=== PATIENT | male | born 1945 | race Caucasian/White ===

== ENCOUNTER 2020-07-17 20:15 | Emergency (ER) | payer MEDICARE, OTHER, SELFPAY ==
[2020-07-17 20:27] VITALS: BP 160/84; PULSE 103; RESP 16; TEMP 37.1; O2SAT 96; BMI 33.0
--- NOTE | 2020-07-17 20:41 | ED_ITS ---
HPI - Neck Pain/Injury General: Chief Complaint: Neck Pain/Injury Stated Complaint: SHARP PAINS IN NECK Time Seen by Provider: 07/17/20 20:23 Source: patient Mode of arrival: ambulatory Limitations: no limitations History of Present Illness: HPI Narrative: 74-year-old male who states that he was sleeping in his recliner 2 days ago his head was tilted in a weird way. He states that since then he has had left-sided neck pain that is worsened. He states it is over his trapezius muscle and is very tender to touch tries to move his head to the left. He denies any midline pain. Denies any headache. Denies any chest pain. States pain is currently a 7 out of 10 MD complaint: neck pain Onset (ago): hour(s) Place: home Associated symptoms: Denies headache(s) or nausea Review of Systems 2 Const: Denies: fever(s), chills, body aches or change in appetite Eyes: Denies: blurry vision or eye discomfort ENMT: Denies: throat pain or dental pain Card: Denies: chest pain Resp: Denies: dyspnea GI: Denies: abdominal pain, nausea, vomiting or diarrhea : Denies: dysuria Musc: Reports: neck pain; Denies: back pain Skin/Breast: Denies: rash Neuro: Denies: headache(s) Psych: Denies: depression Martin/Lymph: Denies: easy bruising All/Imm: Denies: urticaria Physical Exam Const: COMMON NORMALS: no acute distress, patient oriented x3 and healthy appearing HENMT: COMMON NORMALS: normocephalic and atraumatic HEAD & SCALP: normocephalic and atraumatic Eye: COMMON NORMALS: Equal, round and reactive pupils present and EOMs intact bilaterally PUPIL: Yes Equal, round and reactive pupils present Neck/C-Spine: OTHER: tenderness over left trapezius, no midline tenderness pain when he turns head to left Chest: COMMONS NORMALS: normal inspection of the chest and normal palpation of entire chest wall Resp: COMMON NORMALS: normal respiratory effort, No retractions, No use of accessory muscles and clear to auscultation bilaterally AUSCULTATION: clear to auscultation bilaterally Cardio: COMMON NORMALS: regular rate, regular rhythm and No murmurs present (Cardio) RATE: regular rate RHYTHM: regular rhythm GI: COMMON NORMALS: Normal to inspection, nondistended, normoactive bowel sounds present, Soft to palpation, non-tender and no masses PALPATION: Yes Soft to palpation Extremity: COMMON NORMALS: normal to inspection and full ROM Neuro: COMMON NORMALS: patient oriented x3, moves all extremities and no focal motor deficits Psych: COMMON NORMALS: mental status grossly normal, Normal thought process present and cooperative THOUGHT PROCESS: Normal thought process present Skin: COMMON NORMALS: no rashes or lesions noted and no wounds GENERAL SKIN EXAM: no rashes or lesions noted Course Vital Signs: Vital signs: Vital Signs Temperature 98.8 F 07/17/20 20:27 Pulse Rate 103 H 07/17/20 20:27 Respiratory Rate 16 07/17/20 20:27 Blood Pressure 160/84 07/17/20 20:27 Pulse Oximetry 96 07/17/20 20:27 MDM - Neck Pain/Injury MDM Narrative: Medical decision making narrative: Giorgio presents here with neck pain is likely muscle spasm. He has no midline pain. We will place him on anti-inflammatory and a muscle relaxant. He is to ice 10 minutes every 1-2 hours. He is stable for discharge and is to follow-up with PCP in 2 to 4 days and return if worsening. He understands agrees to plan. Discharge Plan Discharge Patient Disposition: Home Clinical Impression: Strain of neck muscle Qualifiers: Encounter type: initial encounter Qualified Code(s): S16.1XXA - Strain of muscle, fascia and tendon at neck level, initial encounter Condition: Stable Prescriptions: New Robaxin-750 750 mg tablet 750 mg PO Q6H Qty: 30 RF: 0 Naprosyn 500 mg tablet 500 mg PO BID PRN (Reason: pain) Qty: 20 RF: 0 Discharge Orders: Discharge ED (Routine); Ordered 07/17/20 Ordered By: Harry Webber Referrals: Praveen Rodriguez MD [Physician] - 1-3 days Discharge Diet: Advance as tolerated Discharge Activity: Resume usual activity Patient Instructions: Cervical Sprain (ED), Muscle Spasm (ED) Coding Level of Care Code ED Bead Cutter for Chg Fwd Exam Comprehensive
[2020-07-17] MEDS: methocarbamol 750 mg Tablet PO (21:02)
[2020-07-17] MEDS: HYDROcodone-acetaminophen 7.5-325 mg Tablet 1 TAB PO (21:02)
[2020-07-17 21:10] VITALS: BP 143/84; PULSE 97; RESP 18; O2SAT 96
== END 2020-07-17 21:11 | disposition home or self-care (01) ==
LOC: ER 20:44
PROVIDERS: Emergency Provider Emergency Medicine; PCP Internal Medicine
DX: S16.1XXA Strain of muscle, fascia and tendon at neck level, initial encounter (principal); X50.1XXA Overexertion from prolonged static or awkward postures, initial encounter
CPT/HCPCS: 99283

== ENCOUNTER 2023-08-05 11:15 | Outpatient (CLI) | payer MEDICARE, OTHER, SELFPAY ==
[2023-08-05 11:49] VITALS: BMI 31.1
--- NOTE | 2023-08-05 11:51 | ECG_ITS ---
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 Interpretive Statements NAME OF STUDY: TREADMILL STRESS TEST INDICATION: [Dyspnea on Exertion, ] EXERCISE DATA: The patient was exercised by Bernard protocol. Baseline heart rate was 79 beats per minute. Baseline blood pressure was 151/85 millimeters of mercury. Maximal predicted heart rate was 144 beats per minute. Maximum heart rate achieved was 140, which was 97% of the maximum predicted heart rate. Maximum blood pressure was 207/91 millimeters of mercury. Total exercise time was 1 minute and 28 seconds. Maximum METs achieved was 4.6. The reason for ending the test was maximal effort achieved secondary to prior ankle surgeries. The patient complained of shortness of breath during the stress test, which then resolved at the end of the test. ELECTROCARDIOGRAM: BASELINE: Normal sinus rhythm with frequent PACs and right bundle branch block. [] EXERCISE: At the peak exercise level, [] No significant ST-T changes suggestive of ischemia noted. [] RECOVERY: During the recovery period, heart rate dropped appropriately. No significant ST-T changes in the recovery suggestive of ischemia noted. [] CONCLUSION: 1. Exercise capacity is poor. Patient had prior ankle surgeries and has limited exercise capacity. Only exercised for 1 minute 28 seconds. 2. Heart rate response was appropriate 3. Blood pressure response was hypertensive 4. Symptoms not suggestive of ischemia. 5. Baseline right bundle branch block decreases sensitivity of the test however no significant ST-T wave changes were seen at target heart rate. If suspicious for underlying coronary artery disease, recommend stress test with imaging Electronically Signed On 08-11-2023 12:34:43 CDT by Suraj Newman M.D. [email or web address]
[2023-08-05 12:58] VITALS: BP 163/93; PULSE 93
== END 2023-08-05 11:16 | disposition home or self-care (01) ==
LOC: CDL 11:18
PROVIDERS: PCP Internal Medicine; Visit Provider Internal Medicine
DX: R06.09 Other forms of dyspnea (principal)
CPT/HCPCS: 93017

== ENCOUNTER 2024-06-25 21:35 | Emergency (ER) | payer MEDICARE, OTHER, SELFPAY ==
[2024-06-25 21:39] VITALS: BP 133/67; PULSE 112; RESP 18; TEMP 36.7; O2SAT 94
--- NOTE | 2024-06-25 21:50 | XRR_ITS ---
PROCEDURE INFORMATION: Exam: XR Chest Exam date and time: 06/25/2024 9:51 PM Age: 78 years old Clinical indication: Dyspnea and shortness of breath; Additional info: Dyspnea, tachycardia weakness TECHNIQUE: Imaging protocol: Radiologic exam of the chest. Views: 1 view. COMPARISON: CR XR chest 2V* [id number] 07/13/2023 10:52 AM FINDINGS: Lungs: Left lower lobe atelectasis versus minimal infiltrate. Pleural spaces: Unremarkable. No pleural effusion. No pneumothorax. Heart/Mediastinum: Cardiomegaly. Bones/joints: Unremarkable. XR/XR chest 1V portable [id number] IMPRESSION: 1. Left lower lobe atelectasis versus minimal infiltrate. 2. Cardiomegaly.
[2024-06-25 21:51] VITALS: BP 133/67; PULSE 109; RESP 16; O2SAT 96
[2024-06-25 21:58] LABS: Basophils # 0.1 10^3/uL (0.0-0.1); Basophils % 0.7 %; Eosinophils # 0.2 10^3/uL (0.0-0.8); Eosinophils % 1.3 %; Hematocrit 38.1 % (37-53); Lymphocytes # 0.9 10^3/uL (0.8-4.8); Lymphocytes % 8.3 %; Mean Corpuscular HGB Conc 31.8 g/dL (30-55); Mean Corpuscular Hemoglobin 31.6 pg (27-33); Mean Corpuscular Volume 99.5 fl (82-101); Mean Platelet Volume 9.4 fL (7.4-10.4); Monocytes # 1.2 10^3/uL (0.2-0.9); Monocytes % 10.8 %; Neutrophils # 8.76 10^3/uL (1.8-7.7); Neutrophils % 78.6 %; Nucleated Red Blood Cells % 0 %; Platelet Count 225 10^3/cmm (157-399); Red Blood Count 3.83 10^6/uL (3.85-5.65); Red Cell Distribution Width 13.1 % (12.1-15.1); White Blood Count 11.15 10^3/uL (3.29-11.43)
--- NOTE | 2024-06-25 22:01 | W.ED.WEAKNES ---
HPI - Weakness General: Chief complaint: Weakness Stated complaint: SOB Time Seen by Provider: 06/25/24 21:39 History of Present Illness: Patient brought in to the ER for shortness of breath and weakness. Patient was seen by his primary care today and diagnosed with influenza A but then ran some errands picked up his Tamiflu but has not taken it yet when he tried to get out the car to go into the house he was very weak and got very short of breath he did not get this way getting out of car to going to the doctor's office. Patient has no other complaints at this time. Review of Systems General: Reports: 10 or more systems reviewed and unremarkable except in HPI and below Physical Exam Const: COMMON NORMALS: no acute distress, average body habitus, patient oriented x3, no limitations, healthy appearing, alert and well nourished HENMT: COMMON NORMALS: normocephalic, atraumatic, hearing grossly normal bilaterally, external ears normal, Normal external nose present, moist oral mucous membranes and oropharynx normal HEAD & SCALP: normocephalic and atraumatic NOSE: Normal external nose present EXTERNAL EAR: Yes external ears normal Neck/C-Spine: COMMON NORMALS: no JVD Chest: COMMONS NORMALS: normal inspection of the chest and normal palpation of entire chest wall Resp: COMMON NORMALS: normal respiratory effort, No retractions, No use of accessory muscles and clear to auscultation bilaterally AUSCULTATION: clear to auscultation bilaterally Cardio: COMMON NORMALS: no JVD, regular rate, regular rhythm, S1 normal heart sound present, S2 normal heart sound present, No gallops present (Cardio), No clicks present (Cardio), No murmurs present (Cardio) and No rub (Cardio) RATE: regular rate RHYTHM: regular rhythm HEART SOUNDS: S1 normal heart sound present and S2 normal heart sound present GI: COMMON NORMALS: Normal to inspection, nondistended, normoactive bowel sounds present, Soft to palpation, non-tender, No hepatosplenomegaly present and no masses PALPATION: Yes Soft to palpation and Yes No hepatosplenomegaly present Neuro: COMMON NORMALS: patient oriented x3 SENSORIUM/ORIENTATION: Yes alert Course Vital Signs: Vital signs: Vital Signs Temperature 98.1 F 06/25/24 21:39 Pulse Rate 111 H 06/25/24 23:19 Respiratory Rate 20 H 06/25/24 23:19 Blood Pressure 115/64 06/25/24 23:19 Pulse Oximetry 97 06/25/24 23:19 Oxygen Delivery Me thod Room Air 06/25/24 23:19 MDM - Weakness Medical Decision Making Lab work was reviewed, chest x-ray showed left lower lobe atelectasis versus minimal infiltrate. Patient is influenza A positive. BUN/creatinine slightly elevated 32 and 1.8, BNP is 1467, initial troponin 28, 2-hour troponin 33 for delta of approximately 5, lactic acid 2.4, D-dimer 0.4, these results was discussed with the patient. Patient says ready go home. Patient was offered inpatient observation due to weakness and fatigue, patient declined. Patient be discharged home. Medical Records I reviewed the patient's medical records. Lab Data I reviewed the patient's lab results. 06/25/24 20:10 06/25/24 20:10 Radiology Impressions Chest X-Ray 06/25/24 21:50 IMPRESSION: 1. Left lower lobe atelectasis versus minimal infiltrate. 2. Cardiomegaly. Laboratory Results WBC 11.15 10^3/uL (3.29-11.43) 06/25/24 20:10 RBC 3.83 10^6/uL (3.85-5.65) L 06/25/24 20:10 Hgb 12.10 g/dL (11.27-16.99) 06/25/24 20:10 Hct 38.1 % (37-53) 06/25/24 20:10 MCV 99.5 fl (82-101) 06/25/24 20:10 MCH 31.6 pg (27-33) 06/25/24 20:10 MCHC 31.8 g/dL (30-55) 06/25/24 20:10 RDW 13.1 % (12.1-15.1) 06/25/24 20:10 Plt Count 225 10^3/cmm (157-399) 06/25/24 20:10 MPV 9.4 fL (7.4-10.4) 06/25/24 20:10 Neut % (Auto) 78.6 % 06/25/24 20:10 Lymph % (Auto) 8.3 % 06/25/24 20:10 [place] % (Auto) 10.8 % 06/25/24 20:10 Eos % (Auto) 1.3 % 06/25/24 20:10 Baso % (Auto) 0.7 % 06/25/24 20:10 Neut # (Auto) 8.76 10^3/uL (1.8-7.7) H 06/25/24 20:10 Lymph # (Auto) 0.9 10^3/uL (0.8-4.8) 06/25/24 20:10 [place] # (Auto) 1.2 10^3/uL (0.2-0.9) H 06/25/24 20:10 Eos # (Auto) 0.2 10^3/uL (0.0-0.8) 06/25/24 20:10 Baso # (Auto) 0.1 10^3/uL (0.0-0.1) 06/25/24 20:10 Nucleated RBC % (auto) 0 % 06/25/24 20:10 Nucleated RBCs # 0.0 /100WBC 06/25/24 20:10 D-Dimer 0.46 ug/mLFEU (0-0.59) 06/25/24 22:02 Sodium 137 mmol/L (136-145) 06/25/24 20:10 Potassium 4.9 mmol/L (3.5-5.1) 06/25/24 20:10 Chloride 100 mmol/L (98-107) 06/25/24 20:10 Carbon Dioxide 22 mmol/L (22-29) 06/25/24 20:10 Anion Gap 19.9 (5-19) H 06/25/24 20:10 BUN 32 mg/dL (8-23) H 06/25/24 20:10 Creatinine 1.8 mg/dL (0.7-1.2) H 06/25/24 20:10 GFR Calculation Not Reportable 06/25/24 20:10 Glucose 111 mg/dL (65-115) 06/25/24 20:10 Calculated Osmolality 292 mOsm/kg (285-295) 06/25/24 20:10 Lactic Acid 2.4 mmol/L (0.5-2.2) H 06/25/24 22:02 Calcium 9.4 mg/dL (8.5-10.5) 06/25/24 20:10 Total Bilirubin 0.5 mg/dL (0.15-1.2) 06/25/24 20:10 AST 14 U/L (0-40) 06/25/24 20:10 ALT 10 U/L (0-41) 06/25/24 20:10 Alkaline Phosphatase 99 U/L (40-130) 06/25/24 20:10 Troponin T Baseline 28 ng/L (0-15) H 06/25/24 20:10 Troponin T 120 Minute 33.69 ng/L (0-15) H 06/25/24 22:02 Delta Troponin T 5.69 ABS# (0-10) 06/25/24 22:02 NT-Pro-B Natriuret Pep 1467 pg/mL (0-450) H 06/25/24 20:10 Total Protein 7.0 g/dL (6.6-8.7) 06/25/24 20:10 Albumin 4.2 g/dL (3.5-5.2) 06/25/24 20:10 Globulin 2.8 g/dL (1.3-4.6) 06/25/24 20:10 Urine Color Yellow (Yellow) 06/25/24 23:22 Urine Appearance Clear (CLEAR) 06/25/24 23:22 Urine pH 5.0 (5-7) 06/25/24 23:22 Ur Specific [place] 1.018 (1.005-1.030) 06/25/24 23:22 Urine Protein 3+ (Negative) A 06/25/24 23:22 Urine Glucose (UA) Negative (Normal) 06/25/24 23:22 Urine Ketones Negative (Negative) 06/25/24 23: Urine Blood Negative (Negative) 06/25/24 23:22 Urine Nitrate Negative (Negative) 06/25/24 23:22 Urine Bilirubin Negative (Negative) 06/25/24 23:22 Urine Urobilinogen 0.2 mg/dL (Negative) 06/25/24 23:22 Ur Leukocyte Esterase Negative (Negative) 06/25/24 23:22 Urine RBC 0-2 /hpf (0-2) 06/25/24 23:22 Urine WBC 6-10 /hpf (0-5) 06/25/24 23:22 Ur Squamous Epith Cells 0-5 /hpf (0-5) 06/25/24 23:22 Amorphous Sediment Not Reportable 06/25/24 23:22 Urine Bacteria None seen /hpf (NONE) 06/25/24 23:22 Hyaline Casts 6.61 /lpf 06/25/24 23:22 Influenza A (PCR) Positive (Negative) 06/25/24 22:25 Influenza Type B (PCR) Negative (Negative) 06/25/24 22:25 RSV (PCR) Negative (Negative) 06/25/24 22:25 SARS-CoV-2 (PCR) Negative (Negative) 06/25/24 22:25 All radiology interpretation(s) finalized by discharge Discharge Plan Discharge Patient Disposition: Home Clinical Impression: Influenza A, Acute kidney injury, Generalized weakness Condition: Stable Prescriptions: No Action Robaxin-750 750 mg tablet 750 mg PO Q6H Qty: 30 0RF Naprosyn 500 mg tablet 500 mg PO BID PRN (Reason: pain) Qty: 20 0RF Discharge Orders: Discharge ED (Routine); Ordered 06/25/24 Ordered By: Germán Reno Referrals: Varghese Veronica MD [Primary Care Provider] - 1 week Patient Instructions: Influenza (ED), Acute Kidney Injury (DC), Weakness (Generalized) Activity Restrictions/Additional Instructions: Test performed in ER shows you have influenza A, your kidneys are not working quite as good as it should need a protein in your urine. Please start your Tamiflu as previously prescribed, please push plenty of fluids. Please get plenty of rest. If you find your weakness worsens or becomes where cannot function at home in a safe manner please feel free to return to the ER. Otherwise follow-up with your family physician within the next 7 days for further evaluation treatment as needed activity restrictions/additional instructions: Thank you for choosing [facility] for your healthcare needs today. Please realize that you were seen in the emergency department and that we are providing you with an emergency medical screening exam and this may not be a complete and all exclusive of all testing and/or medical workup we may need to determine your element or severity of your illness. It is very important that you follow-up as instructed with your primary care provider or specialist for the additional evaluation and to discuss your medical treatment plan. You may return to the emergency department should you have concerns or if your condition changes or worsens in any way. Print Language: Sao Tomean Coding Level of Care Code ED Real Estate Teacher for Jude Fwd Related Data Previous Rx's ?Medication ?Instructions ?Recorded methocarbamol 750 mg tablet 750 mg PO Q6H #30 tabs 07/17/20 (Robaxin-750) naproxen 500 mg tablet (Naprosyn) 500 mg PO BID PRN pain #20 tabs 07/17/20 Allergies Allergy/AdvReac Type Severity Reaction Status Date / Time No Known Allergies Allergy Verified 06/25/24 21:45
[2024-06-25 22:17] LABS: Troponin(5th) Baseline 28 ng/L (0-15)
--- NOTE | 2024-06-25 22:17 | ECG_ITS ---
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 Measurements Intervals [place] Rate: 108 P: 263 SC: 120 QRS: -64 QRSD: 146 T: 80 QT: 323 QTc: 433 Interpretive Statements JUNCTIONAL TACHYCARDIA LEFT AXIS DEVIATION [QRS AXIS < -30] RIGHT BUNDLE BRANCH BLOCK [120+ ms QRS DURATION, UPRIGHT V1, 40+ ms S IN I/aVL/V4/V5/V6] No previous ECG available for comparison Electronically Signed On 06-28-2024 17:56:12 FISH FROG OR OYSTER FARMER by Suraj Newman M.D. [email or web address] [id number]
[2024-06-25 22:22] LABS: D Dimer 0.46 ug/mLFEU (0-0.59)
[2024-06-25 22:24] LABS: Alanine Aminotransferase 10 U/L (0-41); Albumin Level 4.2 g/dL (3.5-5.2); Alkaline Phosphatase 99 U/L (40-130); Anion Gap 19.9 (5-19); Aspartate Amino Transferase 14 U/L (0-40); Blood Urea Nitrogen 32 mg/dL (8-23); Calcium 9.4 mg/dL (8.5-10.5); Carbon Dioxide 22 mmol/L (22-29); Chloride 100 mmol/L (98-107); Globulin 2.8 g/dL (1.3-4.6); Glucose 111 mg/dL (65-115); NT Pro B Type Natriuretic Pept 1467 pg/mL (0-450); Osmolality Calculated 292 mOsm/kg (285-295); Potassium 4.9 mmol/L (3.5-5.1); Sodium 137 mmol/L (136-145); Total Bilirubin 0.5 mg/dL (0.15-1.2)
[2024-06-25 22:24] LABS: Troponin 5 2HR 33.69 ng/L (0-15); Troponin 5 2HR Delta 5.69 ABS# (0-10)
[2024-06-25 22:25] LABS: Lactic Sepsis W/Reflex 2.4 mmol/L (0.5-2.2)
[2024-06-25 23:04] LABS: Influenza A POSITIVE (Negative); Influenza B NEGATIVE (Negative); Respiratory Syncytial Virus Ce NEGATIVE (Negative); SARS-CoV-2 PCR NEGATIVE (Negative)
[2024-06-25 23:19] VITALS: BP 115/64; PULSE 111; RESP 20; O2SAT 97
[2024-06-25 23:32] LABS: Bilirubin Urine Negative (Negative); Blood Urine Negative (Negative); Glucose Urine UA Negative (Normal); Ketones Urine Negative (Negative); Leukocyte Esterase Urine Negative (Negative); Nitrate Urine Negative (Negative); Protein Urine 3+ (Negative); Specific Gravity, Urine 1.018 (1.005-1.030); Urine Appearance Clear (CLEAR); Urine Color Yellow (Yellow); Urobilinogen Urine 0.2 mg/dL (Negative)
[2024-06-25 23:37] LABS: Add Urine Microscopic? YES; Bacteria Urine None Seen /hpf; Hyaline Casts Urine 6.61 /lpf; RBC Urine 0-2 /hpf (0-2); Squamous Epithelial Cell Urine 0-5 /hpf (0-5)
[2024-06-25 23:52] LABS: Reflex Lactate Order REFLEX LACTIC ORDERD
[2024-06-26 00:33] VITALS: BP 128/55; PULSE 108; RESP 22; O2SAT 97
== END 2024-06-26 00:35 | disposition home or self-care (01) ==
PROVIDERS: Emergency Provider Emergency Medicine; PCP Family Medicine
DX: J10.1 Influenza due to other identified influenza virus with other respiratory manifestations (principal); N17.9 Acute kidney failure, unspecified; Z11.52 Encounter for screening for COVID-19; R53.1 Weakness
CPT/HCPCS: 36415; 71045; 80053; 81001; 83605; 83880; 84484; 85025; 85378; 87637; 93005; 99285

== ENCOUNTER 2024-11-06 05:00 | Outpatient (RCR) | payer MEDICARE, OTHER, SELFPAY | END 2024-12-06 23:59 | disposition home or self-care (01) | LOC: WPT 05:00 | PROVIDERS: PCP Family Medicine; Visit Provider Nurse Practitioner Family | DX: R29.6 Repeated falls (principal) | CPT/HCPCS: 97110; 97161 ==

== ENCOUNTER 2024-12-07 05:00 | Outpatient (RCR) | payer MEDICARE, OTHER, SELFPAY | END 2025-01-06 23:59 | disposition home or self-care (01) | LOC: WPT 05:00 | PROVIDERS: PCP Family Medicine; Visit Provider Nurse Practitioner Family | DX: R29.6 Repeated falls (principal) | CPT/HCPCS: 97110; 97112; 97140; 97530 ==

== ENCOUNTER 2025-01-07 05:00 | Outpatient (RCR) | payer MEDICARE, OTHER, SELFPAY | END 2025-02-05 23:59 | disposition home or self-care (01) | LOC: WPT 05:00 | PROVIDERS: PCP Family Medicine; Visit Provider Nurse Practitioner Family | DX: R29.6 Repeated falls (principal) | CPT/HCPCS: 97110; 97530 ==

== ENCOUNTER 2025-03-21 12:39 | Outpatient (CLI) | payer MEDICARE, OTHER, SELFPAY | END 2025-03-21 12:40 | disposition home or self-care (01) | LOC: SLEEP 12:44 | PROVIDERS: PCP Family Medicine; Visit Provider Internal Medicine Pulmonary Disease | DX: G47.33 Obstructive sleep apnea (adult) (pediatric) (principal) | CPT/HCPCS: G0399 ==